=== PATIENT | female | born 1950 | race Caucasian/White ===

== ENCOUNTER → 2017-03-24 | Outpatient (REF) | payer MEDICARE, OTHER | LOC: M LAB REF 17:01 | PROVIDERS: ATTEND Internal Medicine | DX: E83.52 Hypercalcemia (principal) ==

== ENCOUNTER → 2017-09-03 | Outpatient (REF) | payer MEDICARE, OTHER | LOC: M LAB REF 17:38 | PROVIDERS: ATTEND Internal Medicine | DX: E83.52 Hypercalcemia (principal) ==

== ENCOUNTER 2018-02-06 18:54 | Emergency (ER) | payer MEDICARE, OTHER ==
[2018-02-06] MEDS: ASPIRIN 81 MG CHEW TABLET PO (19:45)
[2018-02-06 19:50] LABS: BASO # 0.1 10^3/uL (0.0-0.2); BASO % 1.1 % (0.0-1.0); EOS # 0.2 10^3/uL (0.0-0.50); EOS % 3.2 % (0.0-3.0); HEMATOCRIT 44.6 % (36.0-47.0); HEMOGLOBIN 14.7 g/dl (12.0-15.5); IMMATURE GRANULOCYTE % 0.4 % (0-3.0); LYMPH # 2.2 10^3/uL (1.5-4.5); LYMPH % 38.3 % (24.0-44.0); MEAN CORPUSCULAR HEMOGLOBIN 28.7 pg (27.0-33.0); MEAN CORPUSCULAR VOLUME 86.9 fl (80.0-96.0); MONO # 0.5 10^3/uL (0.0-0.8); MONO % 8.5 % (0.0-5.0); NEUTROPHILS # 2.7 10^3/uL (1.8-7.7); NEUTROPHILS % 48.5 % (36.0-66.0); PLATELET COUNT, AUTOMATED 328 10^3/uL (150-450); RED BLOOD COUNT 5.13 10^6/uL (4.00-5.40); RED CELL DISTRIBUTION WIDTH 12.9 % (11.5-14.5); WHITE BLOOD COUNT 5.6 10^3/uL (4.0-10.0)
[2018-02-06] MEDS: METOPROLOL 5 MG/5 ML VIAL IV ×2 (20:00→20:20)
[2018-02-06] MEDS: DIGOXIN INJ 0.5 MG/2 ML AMP (J1160) IV (20:10)
[2018-02-06 20:11] LABS: ANION GAP 8 MEQ/L (8-16); BLOOD UREA NITROGEN 14 MG/DL (7-18); CALCIUM LEVEL 10.3 MG/DL (8.8-10.2); CARBON DIOXIDE LEVEL 24 MEQ/L (21-32); CHLORIDE LEVEL 108 MEQ/L (98-107); CPK CREATINE PHOSPHOKINASE 63 U/L (26-192); CREATININE FOR GFR 0.74 MG/DL (0.55-1.30); GLOMERULAR FILTRATION RATE > 60.0 (>45); GLUCOSE, FASTING 105 MG/DL (70-100); MAGNESIUM LEVEL 2.1 MG/DL (1.8-2.4); POTASSIUM SERUM 3.8 MEQ/L (3.5-5.1); SODIUM LEVEL 140 MEQ/L (136-145); TROPONIN I < 0.02 NG/ML (< 0.10)
[2018-02-06 20:16] LABS: CK-MB VALUE MASS 1.2 NG/ML (<3.6)
[2018-02-06] MEDS ORDERED: NS 1,000 ML IV (20:45)
[2018-02-06 20:57] LABS: BEDSIDE GLUCOSE 142 MG/DL (80-115)
[2018-02-06 22:03] LABS: CPK CREATINE PHOSPHOKINASE 61 U/L (26-192); TROPONIN I < 0.02 NG/ML (< 0.10)
[2018-02-06 22:04] LABS: CK-MB VALUE MASS 1.3 NG/ML (<3.6); MB/CK RELATIVE INDEX 2.13 (< OR =4)
== END 2018-02-06 22:56 | disposition home or self-care (01) ==
LOC: M ED 18:54
DX: I48.0 Paroxysmal atrial fibrillation (principal); I10 Essential (primary) hypertension; R00.1 Bradycardia, unspecified; R94.31 Abnormal electrocardiogram [ECG] [EKG]; E11.9 Type 2 diabetes mellitus without complications; Z79.84 Long term (current) use of oral hypoglycemic drugs; Z79.899 Other long term (current) drug therapy
CPT/HCPCS: J1160

== ENCOUNTER → 2018-02-19 | Outpatient (REF) | payer MEDICARE, OTHER | LOC: M LAB REF 14:04 | DX: I48.0 Paroxysmal atrial fibrillation (principal) | CPT/HCPCS: 80162 ==

== ENCOUNTER 2019-05-05 08:09 | Emergency (ER) | payer MEDICARE, OTHER ==
[~2019-05-05 08:09] MED LIST changes: -LIDOCAINE 2% INJ 100 MG/5 ML SDV (FOR ANES.) As Ordered ONE; -NS 1,000 ML IV ONE; -PROPOFOL 200 MG/20 ML VIAL As Ordered ONE; -fentaNYL 100 MCG/2 ML INJECTION (J3010) As Ordered ONE
[2019-05-05] MEDS ORDERED: NS 1,000 ML IV SCH (08:21)
[2019-05-05 08:48] VITALS: BP 119/77
--- NOTE | 2019-05-05 19:14 | ECGEPIP ---
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
== END 2019-05-05 08:49 | disposition home or self-care (01) ==
LOC: M ED 08:09
DX: I48.91 Unspecified atrial fibrillation (principal); I10 Essential (primary) hypertension; E78.5 Hyperlipidemia, unspecified; Z79.899 Other long term (current) drug therapy; Z88.1 Allergy status to other antibiotic agents; Z88.8 Allergy status to other drugs, medicaments and biological substances

== ENCOUNTER → 2019-05-05 | Day surgery (SDC) | payer MEDICARE, OTHER ==
[~2019-05-05] VITALS: Ht 147.3 cm; Wt 59.9 kg
[~2019-05-05] MED LIST: CINN500C15 PO; CLAR10CA3 PO; CLIN1GEL3 EX; COEN100T PO; DIGO0.25 PO; FINA0.05 EX; LIDOCAINE 2% INJ 100 MG/5 ML SDV (FOR ANES.) As Ordered ONE; LOSA50TA88; LOSA50TA88 PO; METF500T13 PO; METO1TAB87; NS 1,000 ML IV ONE; OMEP40CA2 PO; PROPOFOL 200 MG/20 ML VIAL As Ordered ONE; SYST1SOL OU; TOPR25TA PO; VITA200044 PO; XARE10TA PO; [UNRECOGNIZED DRUG - CODE] PO; fentaNYL 100 MCG/2 ML INJECTION (J3010) As Ordered ONE
--- NOTE | 2019-05-05 09:06 | ECGEPIP ---
[facility] Test Date: 2019-05-05 Pat Name: AFUA IKM Department: Room: - Gender: Female : BENNIE : 1950 Requested By: FELICIANO Rossi Order Number: [id number] Reading MD: Adarsh Smith Measurements Intervals [place] Rate: 155 P: NC: -1 QRS: 11 QRSD: 79 T: QT: 244 QTc: 392 Interpretive Statements Atrial fibrillation with rapid ventricular response Left ventricular hypertrophy Rhythm change with associated prominent repolarization abnormalities from 02/06/18 Clinical correlation advised Electronically Signed on 05-05-2019 9:06:46 EDT by Adarsh Smith
--- NOTE | 2019-05-05 10:05 | ROOR ---
Patient Name: Sabas Quevedo Procedure Date: 05/05/2019 9:47 AM Date of : 1950 Age: 68 Room: [facility] Gender: Female Note Status: Finalized Procedure: Upper Endoscopy + Biopsies Indications: Heartburn, Exclusion of Gage's esophagus, Abdominal bloating Providers: Deni Beaver MD Referring MD: Margaret Patel DO Requesting Provider: Medicines: Monitored Anesthesia Care Complications: No immediate complications. Procedure: Pre-Anesthesia Assessment: - The heart rate, respiratory rate, oxygen saturations, blood pressure, adequacy of pulmonary ventilation, and response to care were monitored throughout the procedure. The Endoscope was introduced through the mouth, and advanced to the second part of duodenum. The upper GI endoscopy was accomplished without difficulty. The patient tolerated the procedure well. Findings: The Z-line was irregular and was found 40 cm from the incisors. Multiple biopsies were obtained with cold forceps for evaluation to rule out Gage's Esophagus randomly at the gastroesophageal junction. No other significant abnormalities were identified in a careful examination of the stomach. Biopsies were taken with a cold forceps in the gastric antrum for Helicobacter pylori testing. The exam of the duodenum was otherwise normal. Impression: - Z-line irregular, 40 cm from the incisors. - Multiple biopsies were obtained at the gastroesophageal junction. - Biopsies were taken with a cold forceps for Helicobacter pylori testing. - The examination was otherwise normal. Recommendation: - Patient has a contact number available for emergencies. The signs and symptoms of potential delayed complications were discussed with the patient. Return to normal activities tomorrow. Written discharge instructions were provided to the patient. - High fiber diet. - Discharge patient to home. - Follow an antireflux regimen. - Continue present medications. - Await pathology results. - Repeat upper endoscopy for surveillance based on pathology results. - Return to referring physician. - The findings and recommendations were discussed with the patient's family. Deni Beaver MD Deni Beaver MD 05/05/2019 10:05:09 AM Electronically signed by Deni Beaver MD Number of Addenda: 0 Note Initiated On: 05/05/2019 9:47 AM Estimated Blood Loss: Estimated blood loss: none.
--- NOTE | 2019-05-05 10:23 | ROOR ---
Patient Name: Sabas Quevedo Procedure Date: 05/05/2019 9:47 AM Date of : 1950 Age: 68 Room: [facility] Gender: Female Note Status: Finalized Procedure: Total Colonoscopy to Cecum Indications: Screening for colorectal malignant neoplasm Providers: Deni Beaver MD Referring MD: Margaret Patel DO Requesting Provider: Medicines: Monitored Anesthesia Care Complications: No immediate complications. Procedure: Pre-Anesthesia Assessment: - The heart rate, respiratory rate, oxygen saturations, blood pressure, adequacy of pulmonary ventilation, and response to care were monitored throughout the procedure. The Colonoscope was introduced through the anus and advanced to the cecum, identified by appendiceal orifice and ileocecal valve. The colonoscopy was performed without difficulty. The patient tolerated the procedure well. The quality of the bowel preparation was excellent. Findings: The perianal and digital rectal examinations were normal. Non-bleeding internal hemorrhoids were found during retroflexion. The hemorrhoids were small and Grade I (internal hemorrhoids that do not prolapse). Multiple small and large-mouthed diverticula were found in the recto-sigmoid colon, sigmoid colon and descending colon. The exam was otherwise without abnormality on direct and retroflexion views. Impression: - Non-bleeding internal hemorrhoids. - Diverticulosis in the recto-sigmoid colon, in the sigmoid colon and in the descending colon. - The examination was otherwise normal on direct and retroflexion views. - No specimens collected. - The exam was otherwise normal to the cecum. Recommendation: - Patient has a contact number available for emergencies. The signs and symptoms of potential delayed complications were discussed with the patient. Return to normal activities tomorrow. Written discharge instructions were provided to the patient. - High fiber diet. - Discharge patient to home. - Continue present medications. - Repeat colonoscopy in 10 years for screening purposes. - Return to referring physician. - The findings and recommendations were discussed with the patient's family. Deni Beaver MD Deni Beaver MD 05/05/2019 10:22:29 AM Electronically signed by Deni Beaver MD Number of Addenda: 0 Note Initiated On: 05/05/2019 9:47 AM Estimated Blood Loss: Estimated blood loss: none.
[2019-05-05 10:55] VITALS: BP 118/72
== END | disposition home or self-care (01) ==
LOC: M OPP 08:00
PROVIDERS: ATTEND Internal Medicine Gastroenterology
DX: Z12.11 Encounter for screening for malignant neoplasm of colon (principal); K57.30 Diverticulosis of large intestine without perforation or abscess without bleeding; K64.0 First degree hemorrhoids; K22.8 Other specified diseases of esophagus; R12 Heartburn; R14.0 Abdominal distension (gaseous); Z79.84 Long term (current) use of oral hypoglycemic drugs; Z79.899 Other long term (current) drug therapy; Z88.1 Allergy status to other antibiotic agents; Z88.8 Allergy status to other drugs, medicaments and biological substances
CPT/HCPCS: 43239; 88305; 93005; G0121; J3010

== ENCOUNTER → 2019-07-20 | Outpatient (REF) | payer MEDICARE, OTHER | LOC: M LAB REF 16:37 | PROVIDERS: ATTEND Internal Medicine | DX: G60.9 Hereditary and idiopathic neuropathy, unspecified (principal) ==

== ENCOUNTER → 2019-08-11 | Outpatient (CLI) | payer MEDICARE, OTHER ==
[~2019-08-11] MED LIST changes: -OMEP40CA2 PO; +OMEP40CA97 PO
--- NOTE | 2019-08-11 09:47 | REP ---
RIGHT UPPER QUADRANT ULTRASOUND: Real-time sonographic evaluation of right upper quadrant performed. Gallbladder demonstrates a 3 mm polyp along the inner wall with no evidence of gallstones. There is no gallbladder wall thickening or pericholecystic fluid. There is no intrahepatic biliary dilatation, common bile duct is upper limits of normal at 7 mm. Cyst posteriorly in the right lobe inferolaterally measures 3.4 x 2.1 x 3.0 cm. There appears to be a tiny 3 mm cyst in the head of the pancreas. Right kidney demonstrates normal size measuring 10 cm in length. There is no hydronephrosis. Complex cyst with thick internal septation and mild low level echoes noted in the upper pole of the right kidney measuring 2.7 cm in diameter. IMPRESSION: There is a 3 mm polyp in the gallbladder without gallstones, gallbladder wall thickening, or free fluid. Common bile duct upper limits of normal at 7 mm. Cyst posterior-inferior right lobe of liver 3.4 cm maximally. Tiny 3 mm cyst in the head of the pancreas. Complex cyst with thick septation and low level echoes upper pole right kidney 2.7 cm in diameter. On a CT in 2014, this cyst measured 1.8 cm in diameter and, therefore, it is mildly increased in size. Electronically Signed by Denver Crump MD 08/11/2019 02:30 P
== END ==
LOC: M RAD 08:31
PROVIDERS: ATTEND Internal Medicine Gastroenterology
DX: K82.4 Cholesterolosis of gallbladder (principal)

== ENCOUNTER → 2019-11-15 | Outpatient (REF) | payer MEDICARE, OTHER ==
[~2019-11-15] MED LIST changes: -DIGO0.25 PO; +DIGO0.253 PO
[2019-11-15 18:27] LABS: BLOOD UREA NITROGEN 16 MG/DL (7-18); CALCIUM LEVEL 10.4 MG/DL (8.8-10.2); CARBON DIOXIDE LEVEL 29 MEQ/L (21-32); CHLORIDE LEVEL 107 MEQ/L (98-107); CREATININE FOR GFR 0.95 MG/DL (0.55-1.30); GLOMERULAR FILTRATION RATE > 60.0 (>39); GLUCOSE, FASTING 95 MG/DL (70-100); POTASSIUM SERUM 3.9 MEQ/L (3.5-5.1); SODIUM LEVEL 141 MEQ/L (136-145)
== END ==
LOC: M LABDRWAD 16:39
PROVIDERS: ATTEND Nurse Practitioner Family
DX: N28.1 Cyst of kidney, acquired (principal)

== ENCOUNTER → 2019-11-17 | Outpatient (CLI) | payer MEDICARE, OTHER ==
[~2019-11-17] MED LIST changes: +ISOVUE-370 76% 100ML VIAL (Q9967) As Ordered ONE
--- NOTE | 2019-11-17 18:54 | REP ---
CT ABDOMEN WITHOUT AND WITH CONTRAST: 11/17/2019. Comparison" MRI abdomen 09/02/2019, CT 09/12/2015 Clinical history: Followup complex renal cyst from findings based on MRI and prior CT. Ultrasound 08/11/2019 also showed complex features. Technique: Noncontrast images through the abdomen followed by bolus of 100 mL Isovue 370 with arterial, venous and delayed phases. Coronal and sagittal reconstructions in venous phase. Findings: There is levorotatory scoliosis of the thoracolumbar spine, unchanged. Volume loss at the left lung due to the scoliosis. There is a 6 mm nodule in the posterior right lower lobe deep sulcus. There is some dependent fibroatelectatic change in the medial basal segment of that left lower lobe. Right lung base showed no nodules. There is some curvilinear fibroatelectatic change in the medial segment of the right middle lobe, also stable. No new nodule or mass, pleural effusion or acute infiltrate. The cyst along the posterior hepatic surface of the subcapsular right lobe posteriorly is without calcification and has maximum diameter 3.[address] No abnormal enhancement. No nodular thickening and this has simple cyst characteristics. Remainder of the liver showed no other lesion or biliary dilatation. There is no ascites. Spleen is not enlarged. There is a small splenule adjacent to it, about a centimeter. Gallbladder shows no calcified mass or stone. Adrenal glands show thickening of their limbs but these are unchanged in appearance since 2015 consistent with benign finding. 5 mm pancreatic cyst on MRI off the pancreatic duct in the body the pancreas, poorly depicted by CT. I suspect it is subtly present on image 29 of the venous image set. There is a small hiatal hernia. Stool and gas scattered in the colon within its abdominal portion without colitis or diverticulitis. Stomach with some retained food. No mass or inflammatory change. The aorta is tortuous and ectatic but without aneurysm and following the curvature of the scoliosis. Distal abdominal aortic and iliac calcifications without aneurysm. The levorotatory scoliosis is advanced with secondary degenerative disc and facet arthritic changes, all of this stable. The right kidney showed an upper pole cyst without calcifications, wall thickening or visible septa by CT. Its AP diameter is increased from [address] to 24 mm today. Impression: 1. Non-enhancing cyst without nodularity, calcifications or wall thickening upper pole right kidney. 2. Simple cyst posteriorly in the subcapsular right lobe of the liver, unchanged. 3. Subtle pancreatic hypodensity in the body of the pancreas. It appears to correspond to the 5 mm ductal cyst on MRI. 4. No other significant or acute finding. There is advanced levorotatory thoracolumbar scoliosis. Electronically Signed by Rene West MD 11/17/2019 08:20 P
== END ==
LOC: M RAD 14:21
PROVIDERS: ATTEND Nurse Practitioner Family
DX: N28.1 Cyst of kidney, acquired (principal)
CPT/HCPCS: 74170; Q9967

== ENCOUNTER → 2020-04-28 | Outpatient (REF) | payer MEDICARE, OTHER ==
[~2020-04-28] MED LIST changes: -ISOVUE-370 76% 100ML VIAL (Q9967) As Ordered ONE
[2020-04-28 12:58] LABS: BLOOD UREA NITROGEN 15 MG/DL (7-18); CALCIUM LEVEL 10.2 MG/DL (8.8-10.2); CARBON DIOXIDE LEVEL 26 MEQ/L (21-32); CHLORIDE LEVEL 110 MEQ/L (98-107); CHOLESTEROL LEVEL 269 MG/DL (<200); CHOLESTEROL RISK RATIO 3.898 (<5); CREATININE FOR GFR 0.72 MG/DL (0.55-1.30); GLOMERULAR FILTRATION RATE > 60.0 (>39); GLUCOSE, FASTING 87 MG/DL (70-100); HDL CHOLESTEROL 69 MG/DL (>40); LDL CHOLESTEROL 189 MG/DL (<100); NON-HDL-C 200 MG/DL; POTASSIUM SERUM 4.2 MEQ/L (3.5-5.1); SODIUM LEVEL 141 MEQ/L (136-145); TRIGLYCERIDES LEVEL 53 MG/DL (<150)
[2020-04-28 13:14] LABS: HEMOGLOBIN A1c 6.1 %
== END ==
LOC: M LABDRWAD 12:25
PROVIDERS: ATTEND Internal Medicine
DX: E78.5 Hyperlipidemia, unspecified (principal); I10 Essential (primary) hypertension; R73.01 Impaired fasting glucose

== ENCOUNTER → 2020-05-24 | Outpatient (CLI) | payer MEDICARE, OTHER | LOC: M LABSMTC 11:00 | PROVIDERS: ATTEND Internal Medicine | DX: Z11.59 Encounter for screening for other viral diseases (principal); Z20.828 Contact with and (suspected) exposure to other viral communicable diseases | CPT/HCPCS: C9803; U0003 ==

== ENCOUNTER → 2020-10-03 | Outpatient (REF) | payer MEDICARE, OTHER ==
[2020-10-03 14:08] LABS: BASO # 0.1 10^3/uL (0.0-0.2); BASO % 1.3 % (0.0-1.0); EOS # 0.1 10^3/uL (0.0-0.5); EOS % 1.3 % (0.0-3.0); HEMATOCRIT 43.9 % (36.0-47.0); LYMPH # 1.8 10^3/uL (1.5-5.0); LYMPH % 33.6 % (24.0-44.0); MEAN CORPUSCULAR HEMOGLOBIN 29.5 pg (27.0-33.0); MEAN CORPUSCULAR HGB CONC 31.9 g/dl (32.0-36.5); MEAN CORPUSCULAR VOLUME 92.6 fl (80.0-96.0); MONO # 0.4 10^3/uL (0.0-0.8); MONO % 6.8 % (0.0-5.0); NEUTROPHILS % 56.8 % (36.0-66.0); PLATELET COUNT, AUTOMATED 310 10^3/uL (150-450); RED BLOOD COUNT 4.74 10^6/uL (4.00-5.40); WHITE BLOOD COUNT 5.3 10^3/uL (4.0-10.0)
[2020-10-03 14:14] LABS: ALT/SGPT 22 U/L (12-78); BILIRUBIN,TOTAL 0.8 MG/DL (0.2-1.0); BLOOD UREA NITROGEN 13 MG/DL (7-18); CALCIUM LEVEL 10.7 MG/DL (8.8-10.2); CARBON DIOXIDE LEVEL 26 MEQ/L (21-32); CHLORIDE LEVEL 110 MEQ/L (98-107); CHOLESTEROL LEVEL 255 MG/DL (<200); CHOLESTEROL RISK RATIO 3.445 (<5); GLOMERULAR FILTRATION RATE > 60.0 (>39); GLUCOSE, FASTING 97 MG/DL (70-100); HDL CHOLESTEROL 74 MG/DL (>40); LDL CHOLESTEROL 165 MG/DL (<100); NON-HDL-C 181 MG/DL; POTASSIUM SERUM 4.4 MEQ/L (3.5-5.1); SODIUM LEVEL 140 MEQ/L (136-145); TOTAL PROTEIN 7.3 GM/DL (6.4-8.2); TRIGLYCERIDES LEVEL 81 MG/DL (<150)
== END ==
LOC: M LABDRWAD 12:21
PROVIDERS: ATTEND Internal Medicine
DX: E78.5 Hyperlipidemia, unspecified (principal); I10 Essential (primary) hypertension

== ENCOUNTER → 2021-05-29 | Outpatient (CLI) | payer MEDICARE, OTHER ==
[~2021-05-29] MED LIST changes: +OMEP40CA4 PO; -OMEP40CA97 PO
--- NOTE | 2021-05-29 11:51 | REP ---
INDICATION: ABNORMAL FINDINGS OF ABD ON IMAGING. COMPARISON: 09/02/2019 TECHNIQUE: MIP reformatted 3-D images of the common bile duct and pancreatic duct were obtained along with source images in the axial and coronal scan planes. 3T multiplanar MRI imaging of the abdomen with attention to the pancreas was obtained using various sequences. FINDINGS: There is no change in appearance of the common bile duct or pancreatic duct. There is no change in appearance of the tiny pancreatic cyst. There is, however, significant respiratory motion artifact obscuring multiple images. There is no change in appearance of the solid intra-organs and gallbladder. Hepatic and renal cysts are noted status quo. There is no evidence of free fluid. There is no change in the osseous structures. IMPRESSION: Stable mild intrapancreatic ductal dilatation and stable 5 mm pancreatic cyst. Other stable findings as described above. <Electronically signed by Bryan Gongora > 05/29/21 [id number]
== END ==
LOC: M RAD 09:18
PROVIDERS: ATTEND Internal Medicine Gastroenterology
DX: K86.2 Cyst of pancreas (principal)

== ENCOUNTER → 2022-06-05 | Outpatient (CLI) | payer MEDICARE, OTHER ==
[~2022-06-05] MED LIST changes: +LOSA50TA28; +LOSA50TA28 PO; -LOSA50TA88; -LOSA50TA88 PO; -[UNRECOGNIZED DRUG - CODE] PO; +[UNRECOGNIZED DRUG - OTHER] PO
== END ==
LOC: M RAD 08:57
PROVIDERS: ATTEND Internal Medicine Gastroenterology
DX: R93.89 Abnormal findings on diagnostic imaging of other specified body structures (principal); K86.2 Cyst of pancreas; K76.89 Other specified diseases of liver

== ENCOUNTER → 2022-10-31 | Outpatient (REF) | payer MEDICARE, OTHER | LOC: M PLALAB 15:41 | PROVIDERS: ATTEND Advanced Practice Midwife | DX: Z12.4 Encounter for screening for malignant neoplasm of cervix (principal) ==

== ENCOUNTER → 2022-11-12 | Outpatient (CLI) | payer MEDICARE, OTHER ==
[~2022-11-12] MED LIST changes: +GASTROGRAFIN SOLUTION 30ML As Ordered ONE; +ISOVUE-370 76% 100ML VIAL As Ordered ONE
== END ==
LOC: M RAD 11:56
PROVIDERS: ATTEND Internal Medicine
DX: K43.9 Ventral hernia without obstruction or gangrene (principal); K76.89 Other specified diseases of liver; M51.35 Other intervertebral disc degeneration, thoracolumbar region
CPT/HCPCS: 74178; Q9963; Q9967

== ENCOUNTER → 2023-04-30 | Outpatient (CLI) | payer MEDICARE, OTHER ==
[~2023-04-30] MED LIST changes: -GASTROGRAFIN SOLUTION 30ML As Ordered ONE; +GASTROGRAFIN SOLUTION 30ML ONE; +ISOVUE-300 61% 100ML VIAL ONE; -ISOVUE-370 76% 100ML VIAL As Ordered ONE
== END ==
LOC: M PLAIMG 08:59
PROVIDERS: ATTEND Internal Medicine
DX: K44.9 Diaphragmatic hernia without obstruction or gangrene (principal); K57.90 Diverticulosis of intestine, part unspecified, without perforation or abscess without bleeding; K59.00 Constipation, unspecified; M62.50 Muscle wasting and atrophy, not elsewhere classified, unspecified site; R91.1 Solitary pulmonary nodule
CPT/HCPCS: 74178; Q9963; Q9967

== ENCOUNTER → 2023-05-29 | Outpatient (CLI) | payer MEDICARE, OTHER ==
[~2023-05-29] MED LIST changes: -GASTROGRAFIN SOLUTION 30ML ONE; -ISOVUE-300 61% 100ML VIAL ONE
== END ==
LOC: M PLAIMG 12:27
PROVIDERS: ATTEND Internal Medicine Gastroenterology
DX: R93.89 Abnormal findings on diagnostic imaging of other specified body structures (principal); N28.1 Cyst of kidney, acquired; K82.8 Other specified diseases of gallbladder; K57.90 Diverticulosis of intestine, part unspecified, without perforation or abscess without bleeding; K44.9 Diaphragmatic hernia without obstruction or gangrene; J91.8 Pleural effusion in other conditions classified elsewhere

== ENCOUNTER → 2023-11-24 | Outpatient (REF) | payer MEDICARE, OTHER | LOC: M LAB REF 17:19 | PROVIDERS: ATTEND Internal Medicine | DX: E83.52 Hypercalcemia (principal) ==

== ENCOUNTER → 2023-12-16 | Outpatient (REF) | payer MEDICARE, OTHER | LOC: M SFHCWAGY 18:02 | PROVIDERS: ATTEND Advanced Practice Midwife | DX: Z12.72 Encounter for screening for malignant neoplasm of vagina (principal); N95.2 Postmenopausal atrophic vaginitis | CPT/HCPCS: 87624; G0123 ==

== ENCOUNTER 2024-06-07 07:03 | Day surgery (SDC) | payer MEDICARE, OTHER ==
[~2024-06-07] VITALS: Ht 144.8 cm; Wt 63.5 kg
[~2024-06-07 07:03] MED LIST changes: +D3 S1CAP3 PO; +ELIQ5TAB PO; +EZET10TA21 PO; +FLEC25TA PO; +LR 1,000 ML IV SCH
[2024-06-07] MEDS ORDERED: MIDAZOLAM INJ 2MG/2ML VIAL As Ordered ONE (07:04)
[2024-06-07] MEDS ORDERED: fentaNYL 100 MCG/2 ML INJECTION As Ordered ONE (07:04)
[2024-06-07] MEDS: FLURBIPROFEN 0.03% OPHTH SOLN 2.5 ML OD SCH (07:30)
[2024-06-07] MEDS: PHENYLEPHRINE 2.5% OPHTH SOL 2ML OD SCH (07:30)
[2024-06-07] MEDS: TETRACAINE 0.5% OPHTH SOLN 4ML OD SCH (07:30)
[2024-06-07] MEDS: ATROPINE SULFATE 1% OPHTH SOLN 2ML BTL OD SCH (07:30)
[2024-06-07] MEDS: LIDOCAINE 1% SDV 5ML VIAL As Ordered ONE (08:26)
[2024-06-07] MEDS: CEFUROXIME 1MG/0.1ML INTRACAMERAL INJ As Ordered ONE (08:27)
[2024-06-07 08:43] VITALS: BP 118/69; TEMP 96.9; O2SAT 96
[2024-06-07] MEDS ORDERED: ONDANSETRON 4MG 2ML VIAL IV PRN (08:50)
== END 2024-06-07 08:57 | disposition home or self-care (01) ==
LOC: M SDC 07:03
PROVIDERS: ATTEND Ophthalmology
DX: H25.11 Age-related nuclear cataract, right eye (principal); I48.0 Paroxysmal atrial fibrillation; I11.9 Hypertensive heart disease without heart failure; E78.00 Pure hypercholesterolemia, unspecified; R73.03 Prediabetes; Z79.01 Long term (current) use of anticoagulants; Z79.84 Long term (current) use of oral hypoglycemic drugs; Z79.899 Other long term (current) drug therapy; Z90.710 Acquired absence of both cervix and uterus; Z88.1 Allergy status to other antibiotic agents; Z88.8 Allergy status to other drugs, medicaments and biological substances
CPT/HCPCS: 66984; J0697; J2250; J3010; V2632

== ENCOUNTER 2024-07-12 06:04 | Day surgery (SDC) | payer MEDICARE, OTHER ==
[~2024-07-12] VITALS: Ht 144.8 cm; Wt 62.6 kg
[~2024-07-12 06:04] MED LIST changes: -LR 1,000 ML IV SCH
[2024-07-12] MEDS: ATROPINE SULFATE 1% OPHTH SOLN 2ML BTL OS SCH (06:45)
[2024-07-12] MEDS: FLURBIPROFEN 0.03% OPHTH SOLN 2.5 ML OS SCH (06:45)
[2024-07-12] MEDS: PHENYLEPHRINE 2.5% OPHTH SOL 2ML OS SCH (06:45)
[2024-07-12] MEDS: TETRACAINE 0.5% OPHTH SOLN 4ML OS SCH (06:45)
[2024-07-12] MEDS ORDERED: LR 1,000 ML IV SCH (07:00)
[2024-07-12] MEDS ORDERED: MIDAZOLAM INJ 2MG/2ML VIAL As Ordered ONE (07:03)
[2024-07-12] MEDS ORDERED: fentaNYL 100 MCG/2 ML INJECTION As Ordered ONE (07:04)
[2024-07-12] MEDS: LIDOCAINE 1% SDV 5ML VIAL As Ordered ONE (07:32)
[2024-07-12] MEDS: CEFUROXIME 1MG/0.1ML INTRACAMERAL INJ As Ordered ONE (07:32)
[2024-07-12 07:45] VITALS: BP 113/70; TEMP 97.7; O2SAT 96
== END 2024-07-12 07:58 | disposition home or self-care (01) ==
LOC: M SDC 06:04
PROVIDERS: ATTEND Ophthalmology
DX: H25.12 Age-related nuclear cataract, left eye (principal); Z88.1 Allergy status to other antibiotic agents; Z88.8 Allergy status to other drugs, medicaments and biological substances; I48.91 Unspecified atrial fibrillation; I10 Essential (primary) hypertension; E78.5 Hyperlipidemia, unspecified; E11.9 Type 2 diabetes mellitus without complications; K21.9 Gastro-esophageal reflux disease without esophagitis; Z79.01 Long term (current) use of anticoagulants; Z79.84 Long term (current) use of oral hypoglycemic drugs; Z79.899 Other long term (current) drug therapy
CPT/HCPCS: 66984; J0697; J2250; J3010; V2632

== ENCOUNTER → 2025-01-14 | Outpatient (REF) | payer MEDICARE, OTHER | LOC: M LAB REF 17:12 | PROVIDERS: ATTEND Internal Medicine | DX: E87.5 Hyperkalemia (principal) ==

== ENCOUNTER → 2025-02-02 | Outpatient (REF) | payer MEDICARE, OTHER ==
[2025-02-04 11:22] LABS: HPV APTIMA Not Detected (Not Detected)
== END ==
LOC: M SFHCWAGY 10:46
PROVIDERS: ATTEND Advanced Practice Midwife
DX: Z12.4 Encounter for screening for malignant neoplasm of cervix (principal)
CPT/HCPCS: 87624; G0123

== ENCOUNTER → 2025-04-27 | Outpatient (CLI) | payer MEDICARE, OTHER | LOC: M PLAIMG 06:40 | PROVIDERS: ATTEND Internal Medicine Gastroenterology | DX: R93.89 Abnormal findings on diagnostic imaging of other specified body structures (principal) ==

== ENCOUNTER → 2025-05-25 | Outpatient (CLI) | payer MEDICARE, OTHER | LOC: M LABDRWAD 11:37 | PROVIDERS: ATTEND Internal Medicine | DX: E87.5 Hyperkalemia (principal) ==